=== PATIENT | male | born 1975 | race Caucasian/White ===

== ENCOUNTER 2021-06-28 10:37 | Outpatient (REF) | payer OTHER, SELFPAY ==
[2021-06-28 10:44] LABS: MANUAL DIFF FLAG NO
[2021-06-28 11:39] LABS: Basophils Absolute Auto 0.1 X10*3/uL (0.0-0.2); Basophils Percent Auto 0.7 % (0-2); Eosinophils Absolute Auto 0.2 X10*3/uL (0.0-0.4); Eosinophils Percent Auto 2.2 % (0-4); Hematocrit 47.8 % (42.0-52.0); Hemoglobin 16.2 g/dl (14.0-18.0); Imm Gran Abs Auto 0.02 X10*3/uL (0.00-0.03); Imm Gran Pct Auto 0.3 % (0.0-0.4); Lymphocytes Absolute Auto 3.2 X10*3/uL (1.2-4.9); Lymphocytes Percent Auto 43.9 % (20-40); Mean Corpuscular HGB Conc 33.9 g/dl (31.0-36.0); Mean Corpuscular Hemoglobin 31.3 pg (27.0-33.0); Mean Corpuscular Volume 92.3 fL (80.0-98.0); Monocytes Absolute Auto 0.7 X10*3/uL (0.1-1.2); Monocytes Percent Auto 9.5 % (2-11); Neutrophils Absolute Auto 3.1 x10*3/uL (2.0-8.3); Neutrophils Percent Auto 43.4 % (45-73); Platelet Count 231 X10*3/uL (160-400); Red Blood Count 5.18 X10*6/uL (4.60-5.80); Red Cell Distribution Width 12.3 % (11.0-16.0); White Blood Count 7.2 X10*3/uL (4.8-10.8)
[2021-06-28 11:47] LABS: Appearance Urine CLEAR; Color Urine YELLOW; Glucose Urine UA NEG (NEG); Leukocyte Esterase Urine NEG (NEG); Nitrite Urine NEG (NEG); Urine Blood NEG (NEG); Urine Ketones NEG (NEG); Urine Protein NEG (NEG-TRACE)
[2021-06-28 12:51] LABS: Alanine Aminotransferase 25 U/L (0-40); Albumin Level 4.2 g/dL (3.5-5.0); Alkaline Phosphatase 60 U/L (39-117); Anion Gap 14 (12-20); Aspartate Amino Transferase 26 U/L (5-37); Bilirubin Total 0.7 mg/dL (0.0-1.0); Blood Urea Nitrogen 11 mg/dL (9-16); Calcium 9.2 mg/dL (8.4-10.2); Carbon Dioxide 25 mmol/L (22-29); Chloride 104 mmol/L (96-108); Cholesterol 238 mg/dL; Estimated Glomerular Filt Rate > 60; Glucose Fasting 93 mg/dL (60-99); HDL Cholesterol 48 mg/dL; LDL Cholesterol Calculated 166 mg/dl; Potassium 4.3 mmol/L (3.3-5.1); Sodium 139 mmol/L (135-145); Total Protein 7.2 g/dL (6.5-8.0); Triglycerides 124 mg/dL
[2021-06-28 13:13] LABS: PSA,Total (Free>4and<10) 0.18 ng/mL (0.00-4.00)
== END 2021-06-28 10:38 | disposition home or self-care (01) ==
LOC: HO.LNP 10:37
PROVIDERS: Visit Provider Internal Medicine
DX: Z00.00 Encounter for general adult medical examination without abnormal findings (principal); R73.01 Impaired fasting glucose; I10 Essential (primary) hypertension
CPT/HCPCS: 80053; 80061; 81003; 84153; 85025

== ENCOUNTER 2021-10-10 10:36 | Outpatient (REF) | payer OTHER, SELFPAY ==
[2021-10-10 10:39] LABS: MANUAL DIFF FLAG NO
[2021-10-10 10:56] LABS: Basophils Absolute Auto 0.1 X10*3/uL (0.0-0.2); Basophils Percent Auto 0.8 % (0-2); Eosinophils Absolute Auto 0.2 X10*3/uL (0.0-0.4); Eosinophils Percent Auto 1.9 % (0-4); Hematocrit 46.1 % (42.0-52.0); Hemoglobin 15.6 g/dl (14.0-18.0); Imm Gran Abs Auto 0.05 X10*3/uL (0.00-0.03); Imm Gran Pct Auto 0.6 % (0.0-0.4); Lymphocytes Absolute Auto 2.6 X10*3/uL (1.2-4.9); Lymphocytes Percent Auto 33.1 % (20-40); Mean Corpuscular HGB Conc 33.8 g/dl (31.0-36.0); Mean Corpuscular Hemoglobin 31.1 pg (27.0-33.0); Monocytes Absolute Auto 0.7 X10*3/uL (0.1-1.2); Monocytes Percent Auto 9.6 % (2-11); Neutrophils Absolute Auto 4.2 x10*3/uL (2.0-8.3); Platelet Count 236 X10*3/uL (160-400); Red Blood Count 5.01 X10*6/uL (4.60-5.80); Red Cell Distribution Width 12.9 % (11.0-16.0); White Blood Count 7.7 X10*3/uL (4.8-10.8)
== END 2021-10-10 10:37 | disposition home or self-care (01) ==
LOC: HO.LNP 10:36
PROVIDERS: Visit Provider Internal Medicine
DX: D72.820 Lymphocytosis (symptomatic) (principal)
CPT/HCPCS: 85025

== ENCOUNTER 2021-12-16 07:50 | Day surgery (SDC) | payer OTHER, SELFPAY ==
[2021-12-09 14:51] VITALS: BMI 35.9
--- NOTE | 2021-12-15 08:21 | HO.ANESPROP2 ---
Documented by User: Pretty Barnett NP 12/15/21 08:22 HPI - Anesthesia Eval Consult details Narrative: 46yo M for Colonoscopy [facility] Past Medical History Medical History No pertinent past medical history Surgical History Surgical History Hx of vasectomy Social History Social History Patient Tobacco Use Status: Never used Tobacco Advance Directives: No Advance Directives Information Provided: Yes Advance Directives on File: No Meds Allergies Allergy/AdvReac Type Severity Reaction Status Date / Time No Known Allergies Allergy Verified 12/09/21 14:44 Home Medications Medication Instructions Recorded Confirmed Last Taken Type No Known Home Meds 12/09/21 12/09/21 Unknown History Exam Exam Date and Time: December 15, 2021 0821 Height,Weight and Vital Signs: Height 5 ft 8 in Weight 107.048 kg Pertinent Lab Results Pertinent Lab Results: Laboratory Tests 06/28/21 10/10/21 07:38 08:00 WBC 7.7 Hgb 15.6 Hct 46.1 Plt Count 236 Sodium 139 Potassium 4.3 Chloride 104 Carbon Dioxide 25 BUN 11 Creatinine 1.01 Assessment and Plan Assessment Anesthesia Assessment: Chart Reviewed Documented by User: Ayleen Rojas MD 12/16/21 09:47 [facility] Active Problems Active Problems: Increased BMI Snores but never tested for PAM Past Medical History Medical History No pertinent past medical history Family History Family history of problems with anesthesia: No Surgical History Surgical History Hx of vasectomy History of Problems with Anesthesia: No Social History Social History Patient Tobacco Use Status: Never used Tobacco Advance Directives: No Advance Directives Information Provided: Yes Advance Directives on File: No Meds Allergies Allergy/AdvReac Type Severity Reaction Status Date / Time No Known Allergies Allergy Verified 12/09/21 14:44 Home Medications Medication Instructions Recorded Confirmed Last Taken Type No Known Home Meds 12/09/21 12/09/21 Unknown History Exam Height,Weight and Vital Signs: Height 5 ft 8 in Weight 107.048 kg Vital Signs Temp Pulse Resp BP Pulse Ox 12/16/21 07:54 97.7 F 70 18 140/79 H 97 Airway Mallampati Class: II TM Dist: >3cm Neck ROM: Full Loose/Missing/Broken Teeth: No Heart: RRR Lungs: CTAB Assessment and Plan Assessment Anesthesia Assessment: Anesthesia Plan Discussed Final Anesthetic Review Family History of Problems with Anesthesia: No History of Problems with Anesthesia: No NPO: Yes ASA Class: II Final Preanesthetic Review: No Changes in Pt Med Stat, Meds/Allgs Chart Reviewed, Consent Obtained/Reviewed and Anes Risks/Benef Reviewed Patient Risk: Low Procedure Risk: Low Assessment/Block/Sedation in SS: Assess/Block/Sedation-SS Anesthetic Plan Anesthetic Plan: MAC: Disposition: Standard PACU
[2021-12-16 07:54] VITALS: BP 140/79; PULSE 70; RESP 18; TEMP 36.5; O2SAT 97
[2021-12-16] MEDS: Lactated Ringers 1,000 ML 100 ML IVCONT (08:14)
[2021-12-16 10:26] VITALS: BP 184/88; PULSE 69; RESP 16; TEMP 36.2; O2SAT 94
--- NOTE | 2021-12-16 10:29 | P.BOP_ITS ---
Brief Operative Note Date of Service: 12/16/21 Pre-op diagnosis: Screening Post-op diagnosis: other (Internal hemorrhoids) Procedure: Colonoscopy to the cecum and TI Surgeon: Brock Webber Anesthesia: MAC Was an Wildlife Refuge Manager used for this Procedure?: No Estimated blood loss (mL): 0 Pathology: none sent Condition: stable Disposition: PACU
[2021-12-16 10:41] VITALS: BP 126/82; PULSE 73; RESP 18; O2SAT 99
[2021-12-16 10:56] VITALS: BP 144/89; PULSE 67; RESP 16; TEMP 36.6; O2SAT 95
--- NOTE | 2021-12-16 21:59 | OP_ITS ---
SURGEON: Brock Webber MD INDICATIONS: The patient presents for evaluation of colorectal cancer screening. Full consent was obtained from him for this, including risks of bleeding and perforation. PREOPERATIVE DIAGNOSIS: Colorectal cancer screening. POSTOPERATIVE DIAGNOSIS: PROCEDURE PERFORMED: Colonoscopy to the cecum and terminal ileum. ESTIMATED BLOOD LOSS: COMPLICATIONS: ANESTHESIA: Monitored anesthesia care. ASSISTANTS: SPECIMENS: POSTOPERATIVE DIAGNOSES: Colorectal cancer screening, internal hemorrhoids. DESCRIPTION OF PROCEDURE: The patient was placed in the left lateral decubitus position. The digital rectal exam revealed no abnormalities. The Olympus video pediatric colonoscope was entered into the rectum and advanced easily to the cecum. Once in the cecum, I did identify normal-appearing cecal pouch with appendiceal orifice and a normal-appearing ileocecal valve. The terminal ileum was cannulated and appeared normal. The scope was withdrawn back in the colon. The entire cecum and ileocecal valve were well visualized and appeared normal. The scope was slowly withdrawn assessing all mucosal surfaces carefully. Preparation was excellent. I did not visualize any sign of polyps, colitis, nor angiodysplasia. In the rectum, scope was retroflexed visualizing small internal hemorrhoids, but no other pathology. The rectal mucosa appeared normal. The scope was straightened and withdrawn from the patient. He tolerated the procedure well and was returned to recovery area in stable condition. IMPRESSION: Small internal hemorrhoids. Otherwise normal colonoscopy. PLAN: I would recommend a repeat colonoscopy in 10 years for further screening. He will otherwise see me on a p.r.n. basis. MD MAURICIO Samayoa/RAQUEL / [phone]
== END 2021-12-16 11:20 | disposition home or self-care (01) ==
PROVIDERS: PCP Internal Medicine; Visit Provider Internal Medicine
PROC: 0DJD8ZZ Inspection of Lower Intestinal Tract, Via Natural or Artificial Opening Endoscopic (ICD-10-PCS; CPT 45378; principal; 2021-12-16 09:10)
DX: Z12.11 Encounter for screening for malignant neoplasm of colon (principal); K64.8 Other hemorrhoids
CPT/HCPCS: 45378

== ENCOUNTER 2022-07-10 11:33 | Outpatient (REF) | payer OTHER, SELFPAY ==
[2022-07-10 11:37] LABS: MANUAL DIFF FLAG NO
[2022-07-10 12:05] LABS: Appearance Urine Clear; Color Urine Yellow; Glucose Urine UA Negative (Negative); Leukocyte Esterase Urine Negative (Negative); Nitrite Urine Negative (Negative); PH 5.5 (5.0-9.0); Urine Blood Negative (Negative); Urine Ketones Negative (Negative); Urine Protein Negative (Neg-Trace)
[2022-07-10 12:11] LABS: Bacteria Urine None Seen (None Seen); Basophils Absolute Auto 0.1 X10*3/uL (0.0-0.2); Basophils Percent Auto 1.2 % (0-2); Eosinophils Absolute Auto 0.2 X10*3/uL (0.0-0.4); Eosinophils Percent Auto 2.3 % (0-4); Hemoglobin 15.9 g/dl (14.0-18.0); Hyaline Casts Urine 0-2 /LPF (0-2); Imm Gran Abs Auto 0.05 X10*3/uL (0.00-0.03); Imm Gran Pct Auto 0.6 % (0.0-0.4); Lymphocytes Absolute Auto 3.2 X10*3/uL (1.2-4.9); Lymphocytes Percent Auto 35.1 % (20-40); Mean Corpuscular HGB Conc 33.8 g/dl (31.0-36.0); Mean Corpuscular Hemoglobin 31.2 pg (27.0-33.0); Mean Corpuscular Volume 92.3 fL (80.0-98.0); Monocytes Absolute Auto 0.7 X10*3/uL (0.1-1.2); Neutrophils Absolute Auto 4.8 x10*3/uL (2.0-8.3); Neutrophils Percent Auto 52.8 % (45-73); Platelet Count 230 X10*3/uL (160-400); RBC Urine 0-2 /HPF (0-2); Red Blood Count 5.09 X10*6/uL (4.60-5.80); Red Cell Distribution Width 12.4 % (11.0-16.0); Squamous Epithelial Cell Urine 0-2 /HPF (0-2); WBC Urine 0-5 /HPF (0-5); White Blood Count 9.1 X10*3/uL (4.8-10.8)
[2022-07-10 13:06] LABS: Blood Urea Nitrogen 14 mg/dL (9-16); Estimated Glomerular Filt Rate > 60
[2022-07-10 13:14] LABS: Alanine Aminotransferase 24 U/L (0-40); Albumin Level 3.9 g/dL (3.5-5.0); Alkaline Phosphatase 70 U/L (39-117); Anion Gap 10 (12-20); Aspartate Amino Transferase 23 U/L (5-37); Bilirubin Total 0.4 mg/dL (0.0-1.0); Carbon Dioxide 26 mmol/L (22-29); Chloride 106 mmol/L (96-108); Cholesterol 229 mg/dL; Glucose Fasting 96 mg/dL (60-99); HDL Cholesterol 47 mg/dL; LDL Cholesterol Calculated 149 mg/dl; PSA,Total (Free>4and<10) 0.26 ng/mL (0.00-4.00); Potassium 4.3 mmol/L (3.3-5.1); Sodium 138 mmol/L (135-145); Total Protein 6.8 g/dL (6.5-8.0); Triglycerides 166 mg/dL
== END 2022-07-10 11:34 | disposition home or self-care (01) ==
LOC: HO.LNP 11:33
PROVIDERS: Visit Provider Internal Medicine
DX: Z00.00 Encounter for general adult medical examination without abnormal findings (principal); I10 Essential (primary) hypertension; D72.820 Lymphocytosis (symptomatic); Z12.5 Encounter for screening for malignant neoplasm of prostate
CPT/HCPCS: 80053; 80061; 81001; 84153; 85025

== ENCOUNTER → 2022-08-25 14:40 | Outpatient (BNVA) | payer OTHER, SELFPAY | PROVIDERS: PCP Internal Medicine; Referring Provider Internal Medicine; Visit Provider Surgery | DX: Z13.89 Encounter for screening for other disorder (principal) ==

== ENCOUNTER 2022-09-08 07:59 | Outpatient (REF) | payer OTHER, SELFPAY ==
--- NOTE | ~2022-09-08 | CT_ITS ---
EXAMINATION: CT ABDOMEN AND PELVIS WITHOUT CONTRAST CLINICAL INFORMATION: Umbilical hernia without obstruction or gangrene. COMPARISON: None TECHNIQUE: Multidetector volumetric imaging was performed from the superior aspect of the liver through the pubic symphysis. Sagittal and coronal reformatted images were obtained on the technologist's workstation. This CT examination was performed using dose optimization techniques as appropriate, variously including the following: *Automated exposure control *Adjustment of mA and/or kV according to patient size (this includes techniques or standardized protocols for targeted exams where dose is matched to indication/reason for exam; i.e. extremities or head) *Use of iterative reconstruction technique DLP: 726 mGy-cm FINDINGS: LUNG BASES: The visualized lung bases are unremarkable. LIVER, GALLBLADDER, AND BILIARY TREE: The liver is normal in size, shape, and attenuation. There is a 1.1 cm lesion left hepatic lobe. No additional lesions seen. There is no intrahepatic ductal dilatation. The gallbladder is unremarkable with no evidence of radiopaque gallstones, gallbladder wall thickening, or obvious pericholecystic inflammatory changes. PANCREAS: Unremarkable. SPLEEN: Unremarkable. ADRENAL GLANDS: Unremarkable. KIDNEYS AND URETERS: The kidneys are normal in size, shape, and attenuation. No hydronephrosis, hydroureter, or calculi seen. No perinephric stranding. BLADDER: Unremarkable. GASTROINTESTINAL TRACT: There is scattered stool and gas seen throughout the colon without distention. The small bowel loops are normal caliber. Appendix is normal. No inflammatory process seen in the abdomen. ABDOMINAL WALL: There is a small umbilical/supraumbilical hernia with neck measuring 2.3 cm wide on axial image 53/3. It mainly consists of intraperitoneal fat and focal fluid collection. LYMPH NODES: Normal. VASCULAR: Unremarkable. PELVIC VISCERA: Unremarkable. OSSEOUS STRUCTURES: No aggressive lytic or sclerotic process seen. CT/CT abdomen pelvis wo IV con IMPRESSION: 1. Small umbilical/supraumbilical hernia containing intraperitoneal fat and focal fluid collection. 2. Mild constipation. Fleischner guidelines were followed.
== END 2022-09-08 08:00 | disposition home or self-care (01) ==
LOC: HO.CT 07:59
PROVIDERS: PCP Internal Medicine; Visit Provider Surgery
DX: K42.9 Umbilical hernia without obstruction or gangrene (principal); M62.08 Separation of muscle (nontraumatic), other site
CPT/HCPCS: 74176

== ENCOUNTER → 2022-09-19 15:46 | Outpatient (BNVA) | payer OTHER, SELFPAY | PROVIDERS: PCP Internal Medicine; Visit Provider Surgery | DX: Z13.89 Encounter for screening for other disorder (principal) ==

== ENCOUNTER 2022-09-21 07:26 | Day surgery (SDC) | payer OTHER, SELFPAY ==
[2022-09-21] VITALS (8 sets, daily range): BP systolic 128–155; BP diastolic 71–91; PULSE 71–90; RESP 14–18; TEMP 36.3–36.4; O2SAT 95–97; BMI 34.9
[2022-09-21] MEDS: Lactated Ringers 1,000 ML 100 ML IVCONT (08:16)
--- NOTE | 2022-09-21 08:47 | HO.ANESPROP2 ---
HPI - Anesthesia Eval Consult details Narrative: Left IHR with mesh PMFSH Active Problems Active Problems: All Active Problems (Updated 08/25/22 @ 15:18 by Jaya Segundo MD) Obesity (BMI 30-39.9) (Acute) Diastasis recti (Acute) Umbilical hernia (Acute) Past Medical History Medical History No pertinent past medical history Family History Family history of problems with anesthesia: No Surgical History Surgical History Hx of vasectomy History of Problems with Anesthesia: No Social History Social History Patient Tobacco Use Status: Never used Tobacco Second Hand Smoke Exposure: No Use of substances other than those prescribed or required for medical reasons: No Are you DNR?: No Advance Directives: No Advance Directives Information Provided: Yes Advance Directives on File: No Meds Allergies Allergy/AdvReac Type Severity Reaction Status Date / Time No Known Allergies Allergy Verified 09/19/22 15:50 Active Medications: Current Medications Lactated Ringer's (Lr) 1,000 mls @ 100 mls/hr IVCONT .Q10H VALERIE Last Admin: 09/21/22 08:16 Dose: 100 mls/hr Exam Exam Date and Time: September 21, 2022 0847 Height,Weight and Vital Signs: Height 5 ft 8 in Weight 104.326 kg Last Vital Signs Temp 97.4 F 09/21/22 07:54 Pulse 71 09/21/22 07:54 Resp 16 09/21/22 07:54 BP 143/91 H 09/21/22 07:54 Pulse Ox 97 09/21/22 07:54 O2 Del Method 09/21/22 07:54 Airway Mallampati Class: II TM Dist: >3cm Neck ROM: Full Heart: rrr Lungs: cta Assessment and Plan Assessment Anesthesia Assessment: Anesthesia Plan Discussed and Chart Reviewed Final Anesthetic Review Family History of Problems with Anesthesia: No History of Problems with Anesthesia: No NPO: Yes ASA Class: II Final Preanesthetic Review: No Changes in Pt Med Stat, Meds/Allgs Chart Reviewed, Consent Obtained/Reviewed and Anes Risks/Benef Reviewed Patient Risk: Low Procedure Risk: Low Anesthetic Plan Anesthetic Plan: GA Disposition: Standard PACU
--- NOTE | 2022-09-21 09:06 | P.OP_ITS ---
Operative Note Operative Note Date of Service: 09/21/22 Narrative: Preop diagnosis: [Umbilical hernia, 2.3cm] Postop diagnosis: [Same, viable properitoneal fat contained] Procedure: [Laparoscopic repair with 4 in by 6 in echo mesh] Surgeon: Jaya Segundo MD Assist: [] Anesthesia: [GET, local ropivicaine, 0.5%] Estimated blood loss: [3cc] Specimen: [None] Intraoperative findings: [Viable properitoneal fat was identified and reduced. Primary closure with is 0 V lock and IPOM performed] Indications: [The patient is a 47 year old gentleman with a history of obesity and a progressively symptomatic umbilical hernia. The options regarding repair in and observation were discussed at length. The importance of maintaining a stable weight and avoiding weight gain to optimize any hernia repair was reviewed. Patient had progression of his symptoms and wanted to have a lapa roscopic repair with intra-abdominal mesh. The inherent risks of bleeding, infection, hernia recurrence, recurrence rate increase with weight gain and not following postoperative activity restrictions, mesh complications that could require another operation or mesh removal were also discussed and apparently understood. The patient seemed understand his options, declined a 2nd opinion and wanted to proceed.] Procedure: [The patient was identified by myself in the preoperative holding area and again in or room 3. 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 He was induced in general endotracheal anesthesia administered with excellent effect. His abdominal hair had previously been clipped and he was widely prepped and draped in the usual manner using ChloraPrep. Appropriate time-out was performed and preemptive local used at all trocar insertion sites. I began in the left upper quadrant after raising a skin wheal, made a skin incision and placed a Veress needle without incident. An appropriate drop test was performed and a pneumoperitoneum of 15 mmHg obtained using carbon dioxide. Next, a 5 mm anterior axillary line port was placed at the level of the umbilicus on the patient's left and the abdomen entered with a 5 mm, 30 degree laparoscopic open Optiview trocar technique without incident. The Veress needle was examined and there was no evidence of injury from it so was removed. A 12 mm port was placed in the left upper quadrant and an additional 5 mm placed in the right anterior axillary line. Laparoscopic exploration of the abdomen showed no other significant pathology. The 5 mm [place] tipped LigaSure was used to circumferentially dissect and reduce the hernia at the supraumbilical location. Two small hernias were noted to be torsed in a [id number] and the fatty tissue was dissected to allow a 4 x 6 inch echo mesh to be placed directly on the posterior sheath/peritoneal space. The fat was placed in an Endo-Catch bag and removed and discarded. Next, primary closure of the umbilical defect that measured 2.[address] was performed using a running 0 V lock suture in intra peritoneal fashion. Next, the echo mesh was deployed and secured with absorbable tacks with the umbilical hernia defect at the center of the mesh. After deflating the abdomen and inspected for hemostasis, the 12 mm trocar was removed and the fascia closed using a an 0 Polysorb on a suture Passer. The abdomen was then deflated and the suture tied. Skin was closed with 4-0 Monocryl subcuticular sutures. The area was then washed and dried, Mastisol and Steri-Strips applied followed by Band-Aids. A cotton ball and Tegaderm were placed to minimize seroma formation at the umbilicus. All sponge instrument counts were correct x2 At the patient's request, I contacted his Victorina at [phone] and apprised of the operation, pain management and activity restrictions. Her questions seemed to be satisfactorily answered.]
--- NOTE | 2022-09-21 09:06 | MHC.SHP ---
Pre-Procedural Eval Section A Date of Service: 09/21/22 The patient is an INPATIENT: No The History & Physical has been completed within 30 days and I have reviewed it.: Yes Section B Chief Complaint: Umbilical hernia without obstruction or gangrene Allergies: Allergies Allergy/AdvReac Type Severity Reaction Status Date / Time No Known Allergies Allergy Verified 09/19/22 15:50 Plan I have reviewed the history and physical and performed a pertinent physical examination on my patient. No changes have occurred unless specified. Time Spent With Patient Time: Total time managing care of this patient today ____ minutes.
[2022-09-21] MEDS: oxyCODONE HCl Immed Release 5 MG TABLET PO (11:40)
== END 2022-09-21 12:51 | disposition home or self-care (01) ==
PROVIDERS: PCP Internal Medicine; Visit Provider Surgery
PROC: 0WQF4ZZ Repair Abdominal Wall, Percutaneous Endoscopic Approach (ICD-10-PCS; CPT 49591; principal; 2022-09-21 09:10)
DX: K42.9 Umbilical hernia without obstruction or gangrene (principal); M62.08 Separation of muscle (nontraumatic), other site; E66.9 Obesity, unspecified; Z68.36 Body mass index [BMI] 36.0-36.9, adult; Z98.52 Vasectomy status
CPT/HCPCS: 49591; C1781; J0690; J1885; J2250; J2405; J3010

== ENCOUNTER → 2022-10-03 13:01 | Outpatient (BNVA) | payer OTHER, SELFPAY | PROVIDERS: PCP Internal Medicine; Visit Provider Surgery | DX: Z13.89 Encounter for screening for other disorder (principal) ==

== ENCOUNTER → 2022-10-10 10:29 | Outpatient (BNVA) | payer OTHER, SELFPAY | PROVIDERS: PCP Internal Medicine; Visit Provider Surgery | DX: Z13.89 Encounter for screening for other disorder (principal) ==

== ENCOUNTER 2023-07-10 11:04 | Outpatient (REF) | payer OTHER, SELFPAY ==
[2023-07-10 11:25] LABS: MANUAL DIFF FLAG NO
[2023-07-10 11:53] LABS: Basophils Absolute Auto 0.1 X10*3/uL (0.0-0.2); Basophils Percent Auto 1.1 % (0-2); Eosinophils Absolute Auto 0.1 X10*3/uL (0.0-0.4); Eosinophils Percent Auto 1.7 % (0-4); Hematocrit 46.2 % (42.0-52.0); Hemoglobin 15.7 g/dl (14.0-18.0); Imm Gran Abs Auto 0.03 X10*3/uL (0.00-0.03); Imm Gran Pct Auto 0.4 % (0.0-0.4); Lymphocytes Absolute Auto 2.8 X10*3/uL (1.2-4.9); Lymphocytes Percent Auto 37.3 % (20-40); Mean Corpuscular Hemoglobin 32.1 pg (27.0-33.0); Mean Corpuscular Volume 94.5 fL (80.0-98.0); Mean Platelet Volume 9.9 fL (9.4-12.4); Monocytes Absolute Auto 0.7 X10*3/uL (0.1-1.2); Monocytes Percent Auto 9.2 % (2-11); Neutrophils Absolute Auto 3.8 x10*3/uL (2.0-8.3); Neutrophils Percent Auto 50.3 % (45-73); Platelet Count 240 X10*3/uL (160-400); Red Blood Count 4.89 X10*6/uL (4.60-5.80); Red Cell Distribution Width 12.6 % (11.0-16.0); White Blood Count 7.6 X10*3/uL (4.8-10.8)
[2023-07-10 11:59] LABS: Appearance Urine Clear; Color Urine Yellow; Glucose Urine UA Negative (Negative); Leukocyte Esterase Urine Negative (Negative); Nitrite Urine Negative (Negative); PH 6.5 (5.0-9.0); Specific Gravity - Urine 1.015 (1.005-1.025); Urine Blood Negative (Negative); Urine Ketones Negative (Negative); Urine Protein Negative (Neg-Trace)
[2023-07-10 12:03] LABS: Bacteria Urine None Seen (None Seen); Hyaline Casts Urine 0-2 /LPF (0-2); RBC Urine 0-2 /HPF (0-2); Squamous Epithelial Cell Urine 0-2 /HPF (0-2); WBC Urine 0-5 /HPF (0-5)
[2023-07-10 12:19] LABS: Alanine Aminotransferase 23 U/L (0-40); Albumin Level 3.9 g/dL (3.5-5.0); Alkaline Phosphatase 68 U/L (39-117); Anion Gap 10 (12-20); Aspartate Amino Transferase 22 U/L (5-37); Bilirubin Total 0.5 mg/dL (0.0-1.0); Blood Urea Nitrogen 13 mg/dL (9-16); Calcium 9.4 mg/dL (8.4-10.2); Carbon Dioxide 29 mmol/L (22-29); Chloride 106 mmol/L (96-108); Cholesterol 210 mg/dL (<200); Estimated Glomerular Filt Rate > 60; Glucose Fasting 95 mg/dL (60-99); HDL Cholesterol 45 mg/dL (>40); LDL Cholesterol Calculated 120 mg/dL (<100); Potassium 4.3 mmol/L (3.3-5.1); Sodium 141 mmol/L (135-145); Total Protein 7.2 g/dL (6.5-8.0); Triglycerides 226 mg/dL (<150)
[2023-07-10 12:28] LABS: Prostate Specific Antigen 0.21 ng/mL (<0.05-4.0)
== END 2023-07-10 11:05 | disposition home or self-care (01) ==
LOC: HO.LNP 11:04
PROVIDERS: Visit Provider Internal Medicine
DX: Z00.00 Encounter for general adult medical examination without abnormal findings (principal); Z12.5 Encounter for screening for malignant neoplasm of prostate; I10 Essential (primary) hypertension; D72.820 Lymphocytosis (symptomatic)
CPT/HCPCS: 80053; 80061; 81001; 84153; 85025

== ENCOUNTER 2024-07-21 11:04 | Outpatient (REF) | payer OTHER, SELFPAY ==
[2024-07-21 11:07] LABS: MANUAL DIFF FLAG NO
[2024-07-21 11:31] LABS: Appearance Urine Clear; Basophils Absolute Auto 0.1 X10*3/uL (0.0-0.2); Basophils Percent Auto 0.7 % (0-2); Color Urine Yellow; Eosinophils Absolute Auto 0.2 X10*3/uL (0.0-0.4); Eosinophils Percent Auto 3.1 % (0-4); Glucose Urine UA Negative (Negative); Hematocrit 46.1 % (42.0-52.0); Imm Gran Abs Auto 0.02 X10*3/uL (0.00-0.03); Imm Gran Pct Auto 0.3 % (0.0-0.4); Leukocyte Esterase Urine Negative (Negative); Lymphocytes Absolute Auto 2.4 X10*3/uL (1.2-4.9); Lymphocytes Percent Auto 34.8 % (20-40); Mean Corpuscular HGB Conc 34.7 g/dl (31.0-36.0); Mean Corpuscular Hemoglobin 31.9 pg (27.0-33.0); Monocytes Absolute Auto 0.7 X10*3/uL (0.1-1.2); Monocytes Percent Auto 9.5 % (2-11); Neutrophils Absolute Auto 3.5 x10*3/uL (2.0-8.3); Neutrophils Percent Auto 51.6 % (45-73); Nitrite Urine Negative (Negative); PH 6.5 (5.0-9.0); Platelet Count 228 X10*3/uL (160-400); Red Blood Count 5.01 X10*6/uL (4.60-5.80); Red Cell Distribution Width 12.2 % (11.0-16.0); Specific Gravity - Urine 1.015 (1.005-1.025); Urine Blood Negative (Negative); Urine Ketones Negative (Negative); Urine Protein Negative (Neg-Trace); White Blood Count 6.9 X10*3/uL (4.8-10.8)
[2024-07-21 11:51] LABS: Alanine Aminotransferase 29 U/L (0-40); Albumin Level 4.1 g/dL (3.5-5.0); Alkaline Phosphatase 65 U/L (39-117); Anion Gap 10 (12-20); Aspartate Amino Transferase 32 U/L (5-37); Bilirubin Total 0.6 mg/dL (0.0-1.0); Blood Urea Nitrogen 11 mg/dL (9-16); Calcium 9.3 mg/dL (8.4-10.2); Carbon Dioxide 27 mmol/L (22-29); Chloride 104 mmol/L (96-108); Cholesterol 219 mg/dL (<200); Estimated Glomerular Filt Rate > 60; Glucose Fasting 91 mg/dL (60-99); HDL Cholesterol 45 mg/dL (>40); LDL Cholesterol Calculated 148 mg/dL (<100); Potassium 4.2 mmol/L (3.3-5.1); Sodium 137 mmol/L (135-145); Total Protein 7.2 g/dL (6.5-8.0); Triglycerides 133 mg/dL (<150)
[2024-07-21 12:03] LABS: PSA,Total (Free>4and<10) 0.21 ng/mL (0.00-4.00)
== END 2024-07-21 11:05 | disposition home or self-care (01) ==
LOC: HO.LNP 11:04
PROVIDERS: Visit Provider Internal Medicine
DX: Z00.00 Encounter for general adult medical examination without abnormal findings (principal); Z12.5 Encounter for screening for malignant neoplasm of prostate; I10 Essential (primary) hypertension; D72.820 Lymphocytosis (symptomatic)
CPT/HCPCS: 80053; 80061; 81003; 84153; 85025

== ENCOUNTER 2024-11-18 20:49 | Emergency (ER) | payer OTHER, SELFPAY ==
--- NOTE | ~2024-11-18 | CT_ITS ---
CLINICAL HISTORY: Lower abd pain and tenderness, WBC 13.7 CT ABDOMEN AND PELVIS WITH CONTRAST COMPARISON: 09/08/2022. FINDINGS: There are multiple fluid-filled and mildly dilated loops of mid small bowel, for example measuring up to 3 cm in caliber on axial image 535 of series 4. Distal to this, there is apparent wall thickening involving several loops of small bowel, for example seen on coronal images 18-28. These loops of small bowel are underdistended which makes accurate assessment difficult. These loops of small bowel demonstrate wall thickening which might be due at least in part to underdistention, however enteritis is questioned as there is noted to be a small amount of adjacent mesenteric fluid, for example seen on coronal image 17. A small amount of fluid is also noted within the upper abdomen. There is also trace pelvic fluid. There is no rim enhancing abscess or free air. Minimal atelectatic changes are noted within the lower lungs. A subcentimeter low-attenuation lesion in the left hepatic lobe is too small to characterize. Fatty liver is suspected. Gallbladder is unremarkable. No visible stone. Stomach is mildly distended with enteric contents and some gas. Pancreas is unremarkable. No CT evidence of acute pancreatitis. Spleen and adrenal glands are unremarkable. Both kidneys are unremarkable. No hydronephrosis or obstructing stone. Urinary bladder is unremarkable. Abdominal aorta is normal in caliber, without evidence of an aneurysm or dissection. No pericolonic inflammation. Appendix is visualized, and there is no evidence of acute appendicitis. Fluid and nonspecific air-fluid levels are noted within nonobstructed portions of ascending and transverse colon. Fat containing umbilical hernia is noted. No evidence of a bowel containing hernia. The bone windows demonstrate no acute abnormalities. Degenerative changes are noted in the visualized spine. There is minimal grade 1 anterolisthesis of L4 on L5. IMPRESSION: 1. A small-bowel obstruction is present, with multiple fluid-filled and mildly dilated loops of mid small bowel measuring up to 3 cm in caliber. Distal to this is apparent wall thickening involving several loops of underdistended small bowel. Although this wall thickening might be due to underdistention, enteritis is questioned as there is noted to be a small amount of adjacent mesenteric fluid. A small amount of abdominal/pelvic fluid is also noted. There is no rim enhancing abscess or free air. Surgical consultation is advised. 2. Additional findings are detailed above. This document has been electronically signed by: Darryl Pack M.D. on 11/19/2024 01:25:15
[2024-11-18 20:52] VITALS: BP 158/105; PULSE 70; RESP 16; TEMP 36.9; O2SAT 98; BMI 36.3
[2024-11-18 21:12] LABS: MANUAL DIFF FLAG NO
[2024-11-18 21:15] LABS: Basophils Absolute Auto 0.1 X10*3/uL (0.0-0.2); Basophils Percent Auto 0.7 % (0-2); Eosinophils Absolute Auto 0.2 X10*3/uL (0.0-0.4); Eosinophils Percent Auto 1.3 % (0-4); Hematocrit 46.3 % (42.0-52.0); Hemoglobin 16.6 g/dl (14.0-18.0); Imm Gran Abs Auto 0.06 X10*3/uL (0.00-0.03); Imm Gran Pct Auto 0.4 % (0.0-0.4); Lymphocytes Absolute Auto 3.1 X10*3/uL (1.2-4.9); Lymphocytes Percent Auto 22.9 % (20-40); Mean Corpuscular HGB Conc 35.9 g/dl (31.0-36.0); Mean Corpuscular Hemoglobin 31.9 pg (27.0-33.0); Neutrophils Absolute Auto 9.2 x10*3/uL (2.0-8.3); Neutrophils Percent Auto 67.7 % (45-73); Platelet Count 241 X10*3/uL (160-400); Red Cell Distribution Width 12.5 % (11.0-16.0); White Blood Count 13.7 X10*3/uL (4.8-10.8)
[2024-11-18 21:26] LABS: Alanine Aminotransferase 33 U/L (0-40); Albumin Level 4.4 g/dL (3.5-5.0); Alkaline Phosphatase 72 U/L (39-117); Anion Gap 12 (12-20); Aspartate Amino Transferase 29 U/L (5-37); Bilirubin Total 0.5 mg/dL (0.0-1.0); Blood Urea Nitrogen 16 mg/dL (9-16); Carbon Dioxide 28 mmol/L (22-29); Chloride 105 mmol/L (96-108); Creatinine Clr Calc Pharmacy 113.5; Estimated Glomerular Filt Rate > 60; Glucose Random 100 mg/dL (60-115); Lipase 31 U/L (8-78); Potassium 4.6 mmol/L (3.3-5.1); Sodium 140 mmol/L (135-145); Total Protein 7.6 g/dL (6.5-8.0)
[2024-11-18 21:37] LABS: Appearance Urine Clear; Color Urine Yellow; Glucose Urine UA Negative (Negative); Leukocyte Esterase Urine Negative (Negative); Nitrite Urine Negative (Negative); PH 6.5 (5.0-9.0); Urine Blood Negative (Negative); Urine Ketones Negative (Negative); Urine Protein Negative (Neg-Trace)
[2024-11-18 21:42] LABS: Bacteria Urine None Seen (None Seen); Hyaline Casts Urine 0-2 /LPF (0-2); RBC Urine 0-2 /HPF (0-2); Squamous Epithelial Cell Urine 0-2 /HPF (0-2); WBC Urine 0-5 /HPF (0-5)
--- OUTSIDE RECORDS SUMMARY | 2024-11-18 21:54 | XMS_ITS ---
Author Organization Dominic Bello MD Address [address] [place] [phone] Care Team Providers Care Sash Repairer Name Role Phone Dominic Bello Primary Care Provider [phone] Medications Medication SIG (Take, Route, Fr equency, Duration) Notes Start Date End Date Status LORazepam 0.5 MG one tablet Orally On ce a day for 10 days 10/25/2023 Active Encounters Encounter Location Date Provider Diagnosis Dominic Bello MD [address] [place] [address] [address] [place] [phone] 10/25/2023 Dominic Bello Plan Of Treatment Medication Medication Name Sig Start Date Stop Date Notes LORazepam 0.5 MG one tablet Orally Once a day for 10 days 10/25/2023 Next Appt Details Provider Name:Dominic pink, 07/24/2025 07:00:00 AM, [address] [place] [address], [address], [phone], Provider Name:Dominic pink, 07/30/2025 03:30:00 PM, [address] [place] [address], [address], [phone], Progress Notes * MELY VELAZQUEZ JrDOB:[birth year] (48 yo M)Acc No.[id number]:10/25/2023 Patient:?MELY VELAZQUEZ :1975???Age:48 Y???Sex:Male Address:[address] [place] [address] [place], [id number] * Refills? Continue LORazepam Tablet, 0.5 MG, Orally, 10, one tablet, Once a day, 10 days * true * Date:? Generated for Brianne lee/Isidro/eTchesmitting on:?11/18/2024 09:54 PM EDT
--- OUTSIDE RECORDS SUMMARY | 2024-11-18 21:54 | XMS_ITS | Patient Health Record ---
Author Organization Dominic Bello MD Address [address] [place], [place] [id number] Care Team Providers Care Structural Iron Worker Name Role Phone Dominic Bello Primary Care Provider Allergies No Known Allergies Results Component Value Reference Range Notes Complete Blood Count Auto Di ff Reviewed date:07/22/2024 12:42:13 PM Interpretation: Performing Lab:[facility], [address] [place] [id number] Notes/Report: White Blood Count 6.9 4.8-10.8 X10*3/uL Red Blood Count 5.01 4.60-5.80 X10*6/uL Hemoglobin 16.0 14.0-18.0 g/dl Hematocrit 46.1 42.0-52.0 % Mean Corpuscular Volume 92.0 80.0-98.0 fL Mean Corpuscular Hemoglobin 31.9 27.0-33.0 pg Mean Corpuscular HGB Conc 34.7 31.0-36.0 g/dl Red Cell Distribution Width 12.2 11.0-16.0 % Platelet Count 228 160-400 X10*3/uL Mean Platelet Volume 10.0 9.4-12.4 fL Neutrophils Percent Auto 51.6 45-73 % Imm Gran Pct Auto 0.3 0.0-0.4 % Lymphocytes Percent Auto 34.8 20-40 % Monocytes Percent Auto 9.5 2-11 % Eosinophils Percent Auto 3.1 0-4 % Basophils Percent Auto 0.7 0-2 % NRBC Pct Auto 0.0 0.0-0.2 /100WBC Neutrophils Absolute Auto 3.5 2.0-8.3 x10*3/u L Imm Gran Abs Auto 0.02 0.00-0.03 X10*3/uL Lymphocytes Absolute Auto 2.4 1.2-4.9 X10*3/u L Monocytes Absolute Auto 0.7 0.1-1.2 X10*3/uL Eosinophils Absolute Auto 0.2 0.0-0.4 X10*3/u L Basophils Absolute Auto 0.1 0.0-0.2 X10*3/uL NRBC Abs Auto 0.000 0.0-0.012 X10*3/uL Comprehensive [place]. Panel Fa st Reviewed date:07/22/2024 12:42:29 PM Interpretation: Performing Lab:[facility], [address] [place] [phone] Notes/Report: Sodium 137 135-145 mmol/L Potassium 4.2 3.3-5.1 mmol/L Chloride 104 96-108 mmol/L Carbon Dioxide 27 22-29 mmol/L Anion Gap 10 12-20 Blood Urea Nitrogen 11 9-16 mg/dL Creatinine 0.86 0.5-1.4 mg/dL Estimated Glomerular Filt Rate > 60 Chronic Kidney Disease: Estimated GFR < 60 mL/min/1.73m2 Severe Kidney Disease: Estimated GFR < 15 mL/min/1.73m2 Glucose Fasting 91 60-99 mg/dL Calcium 9.3 8.4-10.2 mg/dL Bilirubin Total 0.6 0.0-1.0 mg/dL Aspartate Amino Transferase 32 5-37 U/L Alanine Aminotransferase 29 0-40 U/L Total Protein 7.2 6.5-8.0 g/dL Albumin Level 4.1 3.5-5.0 g/dL Alkaline Phosphatase 65 39-117 U/L Lipid Panel Reviewed date:07/22/2024 11:08:13 AM Interpretation: Performing Lab:[facility], [address] [place] [phone] Notes/Report: Triglycerides 133 <150 mg/dL Desirable Triglyceride: less than 150 mg/dL Borderline High Triglyceride 150-199 mg/dL High Triglyceride: 200-499 mg/dL Very High Triglyceride: greater than or equal to 5OO mg/dL Cholesterol 219 <200 mg/dL Desirable Cholesterol: less than 200 mg/dL Borderline High Cholesterol: 200-239 mg/dL High Cholesterol: greater than 239 mg/dL LDL Cholesterol Calculated 148 <100 mg/dL Desirable LDL: less than 100 mg/dL Near Optimal/Above Optimal LDL: 110-129 mg/dL Borderline High LDL: 130-159 mg/dL High LDL: 160-189 mg/dL Very High LDL: greater than or equal to 190 mg/dL HDL Cholesterol 45 >40 mg/dL Desirable HDL: greater than 40 mg/dL Note: This HDL assay may give artificially low results in patients with liver disease. PSA,Total (Free>4and<10) Reviewed date:07/22/2024 11:08:22 AM Interpretation: Performing Lab:[facility], [address] [place] [phone] Notes/Report: PSA,Total (Free>4and<10) 0.21 0.00-4.00 ng/mL A Free PSA was not performed: The percentage of Free PSA can be used to enhance the differentiation of prostate cancer from benign prostatic disease in subjects whose PSA levels are between 4.0 and 10.0 ng/mL. For subjects whose PSA levels are below 4.0 or above 10.0 ng/mL, the risk of prostate cancer is determined on the basis of the PSA alone. Therefore the % Free PSA is recommended only for those subjects whose PSA levels are between 4.0 and 10.0 ng/mL. PSA methodology: Freire Alinity i Chemiluminescent Microparticle Immunoassay (CMIA) UA CC w/rflx Micro + Cult Reviewed date:07/22/2024 12:51:03 PM Interpretation: Performing Lab:[facility], [address] [place] [phone] Notes/Report: Urine, Clean Catch Color Urine Yellow Appearance Urine Clear PH 6.5 5.0-9.0 Glucose Urine UA Negative Negative mg/dL Urine Blood Negative Negative Specific [place] - Urine 1.015 1.005-1.025 Urine Protein Negative Neg-Trace mg/dL Urine Ketones Negative Negative mg/dL Nitrite Urine Negative Negative Leukocyte Esterase Urine Negative Negative Reason For Referral No Information Medications Medication SIG (Take, Route, Frequency, Duration) Notes Start Date End Date Status LORazepam 0.5 MG 1 tab Orally Twice a day as needed for 5 days 02/15/2023 Not-Taking Fluorouracil 1 % 1 application Externally Twice a day Not-Takin g Nizoral 2 % as directed External ly daily for 30 days Active Clobetasol Propionate 0.05 % 1 application Externally Twice a day for 15 days 07/05/2021 Not-Taking LORazepam 0.5 MG one tablet Orally Tw ice a day for 5 days 07/28/2024 Active Immunizations Vaccine Route Administration Date Status Comme nts Flu Vaccine Unknown 07/02/2013 Administered Work SARS-COV-2 Moderna Unknown 12/02/2020 Administered SARS-COV-2 Moderna Unknown 12/30/2020 Administered Fluarix Quadrivalent Unknown 08/14/2017 Refused Fluarix Quadrivalent Unknown 06/15/2020 Refused Fluarix Quadrivalent Unknown 06/28/2021 Refused Fluarix Quadrivalent Unknown 07/13/2022 Refused Fluarix Quadrivalent - 150 Unknown 07/28/2024 Refused Social History Tobacco Use: Social History Observation Description Date Details (start date - stop date) Former Smoker NA - NA Tobacco Use/Smoking Question Answer Notes Patient is a former smoker How long has it been since y ou last smoked? 5-10 years Additional Findings: Tobacco Non-User Fo rmer smoker, currently using no form of tobacco Alcohol Screen Question Answer Notes Did you have a drink contain ing alcohol in the past year? Yes How often did you have a dri nk containing alcohol in the past year? Monthly or less (1 point) How many drinks did you have on a typical day when you were drinking in the past year? 1 or 2 drinks (0 point) How often did you have 6 or more drinks on one occasion in the past year? 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 confirmed Problem 37576905 Lymphocytosis (D72.820) Active confirmed Problem 483916530 Labile hypertension (I10) Active confirmed Problem 268205995 BMI 36.0-36.9,adult (Z68.36) Active confirmed Problem [id number] Carpal tunnel syndrome on both sides (G56.03) Active confirmed Vital Signs Blood pressure diastolic 84 mm Hg 07/28/2024 robert ght is up 12 pounds since 07-17-23 Height 68 in 07/28/2024 weight is up 12 pounds since 07-17-23 Blood pressure systolic 142 mm Hg 07/28/2024 weig ht is up 12 pounds since 07-17-23 Weight 239 lbs 07/28/2024 weight is up 12 pounds since 07-17-23 BMI 36.34 kg/m2 07/28/2024 weight is up 12 pounds since 07-17-23 Encounters Encounter Location Date Provider Diagnosis Dominic Bello MD [address] [place] [phone] 07/21/2024 Dominic Bello Blood tests for routine general physical examination Z00.00 ; Labile hypertension I10 and Lymphocytosis D72.820 Dominic Bello MD [address] [place] [id number] 07/28/2024 Dominic Bello Labile hypertension I10 ; Annual physical exam Z00.00 ; Skin lesion L98.9 ; Fear of flying F40.243 ; Colon cancer screening Z12.11 and Depression screening Z13.31 Assessments Encounter Date Diagnosis (ICD Code) Assessment Notes Treatment Notes Treatment Clinical Notes Section Notes 07/21/2024 Blood tests for routine general physical examination (ICD-10 - Z00.00) 07/21/2024 Labile hypertension (ICD-10 - I10) 07/28/2024 Labile hypertension (ICD-10 - I10) doing well. if he loses weight should improve 07/28/2024 Annual physical exam (ICD-10 - Z00.00) Labs reviewed and discussed with patient 07/21/2024 Lymphocytosis (ICD-10 - D72.820) 07/28/2024 Skin lesion (ICD-10 - L98.9) advised to see dermatology/ ALL INFO GIVEN TO [facility] 07/28/2024 Fear of flying (ICD-10 - F40.243) 07/28/2024 Colon cancer screening (ICD-10 - Z12.11) 07/28/2024 Depression screening (ICD-10 - Z13.31) Plan Of Treatment Pending Test Test Name Order Date Electrocardiogram (EKG) 01/11/2017 Electrocardiogram (EKG) 03/21/2018 Complete Blood Count Auto Diff 4 Comprehensive [place]. Panel Fast 4 Lipid Panel 07/21/2024 PSA,Total (Free>4and<10) 07/21/2024 UA ClnCatch+Micro w/rflx Cult 07/21/2024 Next Appt Details Provider Name:Dominic Iyer ier, 07/24/2025 07:00:00 AM, [address] [place] [address], [address], [place], [place], [phone], Provider Name:Dominic Iyer ier, 07/30/2025 03:30:00 PM, [address] [place] [address], [address], [place], [place], [id number], Insurance Providers Payer Name Payer Address Payer Phone Subscriber Number Group Number Insured Name Patient Relationship to Insured Coverage Start Date Coverage End Date [facility] [address] [place], [place] [id number] MELY BERTRAND Self - patient is the insured Medical (General) History Medical History History ICD Code colonscopy 12/16/21 repeat 10 yrs
--- OUTSIDE RECORDS SUMMARY | 2024-11-18 21:54 | XMS_ITS | Patient Health Record ---
Author Organization [facility] Address [address] [place] [phone] Care Team Providers Care Russian Language Instructor Name Role Phone Ace HARRISON, Dominic Primary Care Provider Brock Barger Unavailable [phone] Allergies No Known Allergies Reason For Referral No Information Immunizations Vaccine Route Administration Date Status Comme nts Influenza Unknown 10/19/2021 Refused Social History Tobacco Use: Social History Observation Description Date Details (start date - stop date) Never Smoker NA - NA Tobacco Use/Smoking Question Answer Notes Patient is a nonsmoker Alcohol Screen Question Answer Notes Did you have a drink contain ing alcohol in the past year? Yes How often did you have a dri nk containing alcohol in the past year? 2 to 3 times a week (3 points) How many drinks did you have on a typical day when you were drinking in the past year? 3 or 4 drinks (1 point) How often did you have 6 or more drinks on one occasion in the past year? Monthly (2 points) Points 6 Interpretation Positive Section Notes: Nonsmoker; occ alcohol Problems Problem Type SNOMED Code ICD Code Onset Dates Problem Status W/U Status Risk Notes Problem [id number] Encounter for screening for malignant neoplasm of colon (Z12.11) Active confirmed Problem [id number] Preprocedural examination (Z01.818) Active confirmed Plan Of Treatment Future Test Test Name Order Date COLONOSCOPY 10/19/2021 Insurance Providers Payer Name Payer Address Payer Phone Subscriber Number Group Number Insured Name Patient Relationship to Insured Coverage Start Date Coverage End Date [facility] [address] [place] [address] [phone] [id number] MELY BERTRAND Self - patient is the insured Medical (General) History Medical History History ICD Code Denies [place],DM,CVA,Lung disease,renal dise ase Surgical History Surgery Date(Month/Year) Vasectomy 2009
--- OUTSIDE RECORDS SUMMARY | 2024-11-18 21:54 | XMS_ITS ---
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) Active confirmed Vital Signs Blood pressure systolic 142 mm Hg 07/28/20 24 Blood pressure diastolic 84 mm Hg 024 Height 68 in 07/28/2024 Weight 239 lbs 07/28/2024 BMI 36.34 kg/m2 07/28/2024 weight is up 12 pounds since 07-17-23 Encounters Encounter Location Date Provider Diagnosis Dominic Bello MD [address] [place] [address] [place] [phone] 07/28/2024 Dominic Bello Labile hypertension I10 ; Annual physical exam Z00.00 ; Skin lesion L98.9 ; Fear of flying F40.243 ; Colon cancer screening Z12.11 and Depression screening Z13.31 Assessments Encounter Date Diagnosis (ICD Code) Assessment Notes Treatment Notes Treatment Clinical Notes Section Notes 07/28/2024 Labile hypertension (ICD-10 - I10) doing well. if he loses weight should improve 07/28/2024 Annual physical exam (ICD-10 - Z00.00) Labs reviewed and discussed with patient 07/28/2024 Skin lesion (ICD-10 - L98.9) advised to see dermatology/ ALL INFO GIVEN TO [facility] 07/28/2024 Fear of flying (ICD-10 - F40.243) 07/28/2024 Colon cancer screening (ICD-10 - Z12.11) 07/28/2024 Depression screening (ICD-10 - Z13.31) Plan Of Treatment Medication Medication Name Sig Start Date Stop Date Notes LORazepam 0.5 MG one tablet Orally Twice a day for 5 days 07/28/2024 Treatment Notes Assessment Notes Labile hypertension doing well. if he lo ses weight should improve Annual physical exam Labs reviewed and d iscussed with patient Skin lesion advised to see derma tology/ ALL INFO GIVEN TO [facility] Next Appt Details Follow Up: 1 Year, Reason: Provider Name:Dominic Iyer ier, 07/24/2025 07:00:00 AM, [address], [address], [place], [place], [phone], Provider Name:Dominic Iyer ier, 07/30/2025 03:30:00 PM, [address], [address], [place], [phone], Progress Notes * MARCUSMELY HEWITT JrDOB:[birth year] (49 yo M)Acc No.[id number]:07/28/2024 Progress Notes Patient:?MELY VELAZQUEZ Provider:?Dominic Bello MD :1975???Age:49 Y???Sex:Male Stef e:07/28/2024 Address:[address] [place], [place] [phone] Subjective: * Chief Complaints: * ???ANNUAL EXAM * HPI: ???Depression Screening:?PHQ-9?Little interest or pleasure in doing things?Not at all,?Feeling down, depressed, or hopeless?Not at all,?Trouble falling or staying asleep, or sleeping too much?Not at all,?Feeling tired or having little energy?Not at all,?Poor appetite or overeating?Not at all,?Feeling bad about yourself or that you are a failure, or have let yourself or your family down?Not at all,?Trouble concentrating on things, such as reading the newspaper or watching television?Not at all,?Moving or speaking so slowly that other people could have noticed; or the opposite, being so fidgety or restless that you have been moving around a lot more than usual?Not at all,?Thoughts that you would be better off or of hurting yourself in some way?Not at all,?Total Score?0.?Interpretation and Intervention?Depression Screening Findings?Negative,?Follow-Up for Depression?: review of PHQ-9 found negative result, no follow-up needed.?Communication Needs:?Communication Needs?Does the patient have a hearing impairment?No,?Does the patient have a vision impairment??No,?Does the patient have a cognition impairment??No.?SDOH Questions:?SDOH Questions?In the past year have you been worried about losing housing??No,?In the past year have you or any family members you live with been unable to get any of the following when it was really needed? Check all that apply:?None.?Symptom(s):? patient is a 49 yo male here for annual visit with review of recent labs and follow up of chronic issues, eyes water all the time. is very annoying. * ROS:?General/Constitutional:?Patient denies?fatigue , headache.?Change in appetite?denies.?Chills?denies.?Fever?denies.?Ophthalmologic:?Blurred vision?denies.?Discharge?denies.?Pain?denies.?ENT:?Patient denies?decreased sense of smell , any loss of taste , sore throat.?Decreased hearing?denies.?Sore throat?denies.?Swollen glands?denies.?Endocrine:?Cold intolerance?denies.?Excessive thirst?denies.?Heat intolerance?denies.?Weight loss?denies.?Respiratory:?Cough?denies.?Shortness of breath at rest?denies.?Shortness of breath with exertion?denies.?Wheezing?denies.?Cardiovascular:?Chest pain at rest?denies.?Chest pain with exertion?denies.?Irregular heartbeat?denies.?Shortness of breath?denies.?Gastrointestinal:?Abdominal pain?denies.?Change in bowel habits?denies.?Diarrhea?denies.?Nausea?denies.?Rectal bleeding?denies.?Vomiting?denies .?Genitourinary:?Blood in urine?denies.?Difficulty urinating?denies.?Frequent urination?denies.?Musculoskeletal:?Patient denies?muscle aches.?Painful joints?denies.?Weakness?denies.?Peripheral Vascular:?Patient denies?red and blue toes.?Skin:?Dry skin?denies.?Itching?denies.?Denies?Mole(s),? changes in moles, new moles or any lesions of concern.?Denies?Photosensitivity.?Rash?denies.?Neurologic:?Dizziness?denies.?Fainting?denies.?Headache?denies.? * Medical History:? * Surgical History:? * Hospitalization/Major Diagno stic Procedure:? * Family History:?Father: mando e 79 yrs, non hodgkins lymphoma.?Mother: alive 66 yrs, cva.?1 brother(s) . 2 daughter(s) . .? Father healthy Mother healthy, Denies mental health/substance abuse family history, No pertinent family medical history. * Social History:?Tobacco Use:?Tobacco Use/Smoking?Patient is a?former smoker,?How long has it been since you last smoked??5-10 years,?Additional Findings: Tobacco Non-User?Former smoker, currently using no form of tobacco.?Drugs/Alcohol:?Alcohol Screen?Did you have a drink containing alcohol in the past year??Yes,?How often did you have a drink containing alcohol in the past year??Monthly or less (1 point),?How many drinks did you have on a typical day when you were drinking in the past year??1 or 2 drinks (0 point),?How often did you have 6 or more drinks on one occasion in the past year??Never (0 point),?Points?1,?Interpretation?Negative.?Miscellaneous:?Caffeine: yes, frequency:, 2-3 cups per day. Children: yes. no Community involvements. Exercise: yes, 2-3 times per week plays hockey. Housing: owning. Living with: spouse. Marital status: . Occupation: works full- time. Pets: dog. no Travel outside of the [place]. * Medications:?TakingNizoral 2 % Shampoo as directed Externally dailyLORazepam 0.5 MG Tablet one tablet Orally Once a dayTaking Nizoral 2 % Shampoo as directed Externally dailyTaking LORazepam 0.5 MG Tablet one tablet Orally Once a dayNot-Taking/PRNLORazepam 0.5 MG Tablet 1 tab Orally Twice a day as neededFluorouracil 1 % Cream 1 application Externally Twice a dayClobetasol Propionate 0.05 % Cream 1 application Externally Twice a dayMedication List reviewed and reconciled with the patientNot-Taking/PRN LORazepam 0.5 MG Tablet 1 tab Orally Twice a day as neededNot-Taking/PRN Fluorouracil 1 % Cream 1 application Externally Twice a dayNot-Taking/PRN Clobetasol Propionate 0.05 % Cream 1 application Externally Twice a dayMedication List reviewed and reconciled with the patient * Allergies:?N.K.D.A.yes[Aller gies Verified] Objective: * Vitals:?Ht: 68, Wt:239, BMI: 36.34, BP:142/84, Repeat BP:130/88 weight is up 12 pounds since 07-17-23. * ???Past Orders: ???Lab:UA CC w/rflx Micro + Cult (Order Date - 07/21/2024) (Collection Date - 07/21/2024) ? Value Reference Range ?Color Urine Yellow - ?Appearance Urine Clear - ?PH 6.5 5.0-9.0 - ?Glucose Urine UA Negative Neg ative - mg/dL ?Urine Blood Negative Negative - ?Specific [place] - Urine 1.015 1.005-1.025 - ?Urine Protein Negative Neg-Tr [place] - mg/dL ?Urine Ketones Negative Negati ve - mg/dL ?Nitrite Urine Negative Negati ve - ?Leukocyte Esterase Urine Negative Negative - ???Lab:PSA,Total (Free>4and< 10) (Order Date - 07/21/2024) (Collection Date - 07/21/2024) ? Value Reference Range ?PSA,Total (Free>4and<10) 0.21 0.00-4.00 - ng/mL ???Lab:Lipid Panel (Order Da te - 07/21/2024) (Collection Date - 07/21/2024) ? Value Reference Range ?Triglycerides 133 <150 - mg/dL ?Cholesterol 219 H <200 - m g/dL ?LDL Cholesterol Calculated 148 H <100 - mg/dL ?HDL Cholesterol 45 >40 - mg/dL ???Lab:Comprehensive [place]. [place] Fast (Order Date - 07/21/2024) (Collection Date - 07/21/2024) ? Value Reference Range ?Sodium 137 135-145 - mmo l/L ?Bilirubin Total 0.6 0.0- 1.0 - mg/dL ?Aspartate Amino Transferase 32 5-37 - U/L ?Alanine Aminotransferase 29 0-40 - U/L ?Total Protein 7.2 6.5-8. 0 - g/dL ?Albumin Level 4.1 3.5-5. 0 - g/dL ?Alkaline Phosphatase 65 39-117 - U/L ?Potassium 4.2 3.3-5.1 - mmol/L ?Chloride 104 96-108 - mm ol/L ?Carbon Dioxide 27 22-29 - mmol/L ?Anion Gap 10 L 12-20 - ?Blood Urea Nitrogen 11 9-16 - mg/dL ?Creatinine 0.86 0.5-1.4 - mg/dL ?Estimated Glomerular Filt Rate > 60 - ?Glucose Fasting 91 60-9 9 - mg/dL ?Calcium 9.3 8.4-10.2 - m g/dL ???Lab:Complete Blood Count Auto Diff (Order Date - 07/21/2024) (Collection Date - 07/21/2024) ? Value Reference Range ?White Blood Count 6.9 4. 8-10.8 - X10*3/uL ?Red Blood Count 5.01 4.60 -5.80 - X10*6/uL ?Hemoglobin 16.0 14.0-18.0 - g/dl ?Hematocrit 46.1 42.0-52.0 - % ?Mean Corpuscular Volume 92.0 80.0-98.0 - fL ?Mean Corpuscular Hemoglobin 31.9 27.0-33.0 - pg ?Mean Corpuscular HGB Conc 34.7 31.0-36.0 - g/dl ?Red Cell Distribution Width 12.2 11.0-16.0 - % ?Platelet Count 228 160-4 00 - X10*3/uL ?Mean Platelet Volume 10.0 9.4-12.4 - fL ?Neutrophils Percent Auto 51.6 45-73 - % ?Imm Gran Pct Auto 0.3 0. 0-0.4 - % ?Lymphocytes Percent Auto 34.8 20-40 - % ?Monocytes Percent Auto 9.5 2-11 - % ?Eosinophils Percent Auto 3.1 0-4 - % ?Basophils Percent Auto 0.7 0-2 - % ?NRBC Pct Auto 0.0 0.0-0. 2 - /100WBC ?Neutrophils Absolute Auto 3.5 2.0-8.3 - x10*3/uL ?Imm Gran Abs Auto 0.02 0. 00-0.03 - X10*3/uL ?Lymphocytes Absolute Auto 2.4 1.2-4.9 - X10*3/uL ?Monocytes Absolute Auto 0.7 0.1-1.2 - X10*3/uL ?Eosinophils Absolute Auto 0.2 0.0-0.4 - X10*3/uL ?Basophils Absolute Auto 0.1 0.0-0.2 - X10*3/uL ?NRBC Abs Auto 0.000 0.0-0. 012 - X10*3/uL * Examination: ???General Examination: ?GENERAL APPEARANCE:?well developed, well nourished, in no acute distress.?HEAD:?normocephalic, atraumatic.?EYES:?pupils equal, round, reactive to light and accommodation, sclera non-icteric.?EARS:?normal.?ORAL CAVITY:?mucosa moist.?THROAT:?clear.?NECK/THYROID:?neck supple, full range of motion, no cervical lymphadenopathy, no bruits.?SKIN:?warm and dry, no suspicious lesions , abnormal with a scaly lesion side of nose about one half inch in diameter.?HEART:?regular rate and rhythm, S1, S2 normal, no murmurs.?LUNGS:?clear to auscultation bilaterally.?ABDOMEN:?soft, nontender, nondistended, bowel sounds present, normal, no organomegaly , no masses palpable.?RECTAL EXAM:?normal tone, no external hemorrhoids, no masses palpable, prostate normal, stool guaiac negative.?MALE GENITOURINARY:?circumcised , no penile lesions or discharge , testes descended bilaterally , no testicular mass.?EXTREMITIES:?no clubbing, cyanosis, or edema.?NEUROLOGIC:?nonfocal, motor strength normal upper and lower extremities, sensory exam intact.? Assessment: * Assessment: 1.?Annual physical exam - Z0 0.00 (Primary)?2.?Labile hypertension - I10?3.?Skin lesion - L98.9?4.?Fear of flying - F40.243?5.?Colon cancer screening - Z12.11?6.?Depression screening - Z13.31? Plan: * Treatment: 2.?Labile hypertension? Continue LORazepam Tablet, 0.5 MG, one tablet, Orally, Twice a day, 5 days, 10, Refills 1.?? Notes: doing well. if he loses weight should improve?? 3.?Skin lesion? Notes: advised to see dermatology/ ALL INFO GIVEN TO [facility]?? * Immunizations:? Fluarix Quadrivalent - 150 (Not administered - Refused: Patient decision) * Procedure Codes:? * Preventive Medicine:? ??Counseling:?Care goal follow-up plan:?Counseling for abnormal BMI provided?Yes,?Above Normal BMI Follow-up?Giving encouragement to exercise.? ??Immunizations:?Influenza?Have you had a flu shot since the most recent April 13??No patient refused at visit today.? * Follow Up:?1 Year * * Sign off status: Completed true * Provider:?Dominic Bello MD Date:?1 09/28/2023 Generated for Brianne lee/Isidro/Karolina on:?11/18/2024 09:53 PM EDT History and Physical Notes * HPI (History of Present Illness) Category Sub-Category Detail Notes Category Not es Symptom(s) patient is a 49 yo male here for annual visit with review of recent labs and follow up of chronic issues, eyes water all the time. is very annoying. Depression Screening PHQ-9 Little inte rest or pleasure in doing things: Not at all Feeling down, depressed, or hopeless: No t at all Trouble falling or staying asleep, or sl eeping too much: Not at all Feeling tired or having little energy: N ot at all Poor appetite or overeating: Not at all Feeling bad about yourself o r that you are a failure, or have let yourself or your family down: Not at all Trouble concentrating on thi ngs, such as reading the newspaper or watching television: Not at all Moving or speaking so slowly that other people could have noticed; or the opposite, being so fidgety or restless that you have been moving around a lot more than usual: Not at all Thoughts that you would be b huong off or of hurting yourself in some way: Not at all Total Score: 0 Interpretation and Intervention Depression Gualberto encinas Findings: Negative Follow-Up for Depression: : review of PH Q-9 found negative result, no follow-up needed SDOH Questions SDOH Questions In the past year have you been worried about losing housing?: No In the past year have you or any family members you live with been unable to get any of the following when it was really needed? Check all that apply:: None Communication Needs Communication Needs Does the patient have a hearing impairment: No Does the patient have a vision impairmen t?: No Does the patient have a cognition impair ment?: No Examination Category Sub-Category Detail Notes Category Not es General Examination GENERAL APPEARANCE: well dev eloped, well nourished, in no acute distress HEAD: normocephalic, atrau matic EYES: pupils equal, round, reactive to light and accommodation, sclera non-icteric EARS: normal THROAT: clear NECK/THYROID: neck supple, full ra nge of motion, no cervical lymphadenopathy, no bruits HEART: regular rate and rhy thm, S1, S2 normal, no murmurs LUNGS: clear to auscultatio n bilaterally ABDOMEN: soft, nontender, non distended, bowel sounds present, normal, no organomegaly , no masses palpable NEUROLOGIC: nonfocal, motor stre ngth normal upper and lower extremities, sensory exam intact SKIN: warm and dry, no shivam picious lesions , abnormal with a scaly lesion side of nose about one half inch in diameter EXTREMITIES: no clubbing, cyanosi s, or edema MALE GENITOURINARY: circumcised , no pen ile lesions or discharge , testes descended bilaterally , no testicular mass RECTAL EXAM: normal tone, no exte rnal hemorrhoids, no masses palpable, prostate normal, stool guaiac negative ORAL CAVITY: mucosa moist
--- OUTSIDE RECORDS SUMMARY | 2024-11-18 21:54 | XMS_ITS ---
Author Organization Dominic Bello MD Address [address] [place] [phone] Care Team Providers Care Screw Machine Setter Name Role Phone Dominic Bello Primary Care Provider REASON FOR VISIT FASTING LABS Encounters Encounter Location Date Provider Diagnosis Dominic Bello MD [address] [place] [phone] 07/21/2024 Dominic Bello Blood tests for routine general physical examination Z00.00 ; Labile hypertension I10 and Lymphocytosis D72.820 Assessments Encounter Date Diagnosis (ICD Code) Assessment Notes Treatment Notes Treatment Clinical Notes Section Notes 07/21/2024 Blood tests for routine general physical examination (ICD-10 - Z00.00) 07/21/2024 Labile hypertension (ICD-10 - I10) 07/21/2024 Lymphocytosis (ICD-10 - D72.820) Plan Of Treatment Pending Test Test Name Order Date Complete Blood Count Auto Diff 4 Comprehensive [place]. Panel Fast 4 Lipid Panel 07/21/2024 PSA,Total (Free>4and<10) 07/21/2024 UA ClnCatch+Micro w/rflx Cult 07/21/2024 Next Appt Details Provider Name:Dominic Iyer ier, 07/24/2025 07:00:00 AM, [address] [place] [address], Suite [facility], [place], [place], [phone], Provider Name:Dominic Iyer ier, 07/30/2025 03:30:00 PM, [address], [address], [place], [phone], Progress Notes * MELY VELAZQUEZ JrDOB:[birth year] (49 yo M)Acc No.[id number]:07/21/2024 Progress Note Patient:?MELY VELAZQUEZ Provider:?Dominic Bello MD :1975???Age:49 Y???Sex:Male Stef e:07/21/2024 Address:[address] [place] [address] jamie [id number] Subjective: * Chief Complaints: * ???1. FASTING LABS. * Medical History:? Objective: * Vitals:? Assessment: * Assessment: 1.?Blood tests for routine g eneral physical examination - Z00.00 (Primary)???2.?Labile hypertension - I10???3.?Lymphocytosis - D72.820??? Plan: * Treatment: 2.?Labile hypertension?LAB: Complete Blood Count Auto Diff ?LAB: Comprehensive [place]. Panel Fast ?LAB: Lipid Panel ?LAB: PSA,Total (Free>4and<10) ?LAB: UA ClnCatch+Micro w/rflx Cult 3.?Lymphocytosis?LAB: Complete Blood Count Auto Diff ?LAB: Comprehensive [place]. Panel Fast ?LAB: Lipid Panel ?LAB: PSA,Total (Free>4and<10) ?LAB: UA ClnCatch+Micro w/rflx Cult * Procedure Codes:?02766 VENIP UNCT, ROUTINE* * * The named appointment provid er may or may not be the originator of this progress note, and it is not deemed complete until electronically signed by the appointment provider. Sign off status: Pending * Provider:?Dominic Bello MD Date:?1 09/21/2023 Generated for Brianne lee/Isidro/Karolina on:?11/18/2024 09:54 PM EDT
[2024-11-18 23:11] VITALS: BP 140/89; PULSE 77; RESP 20; TEMP 36.7; O2SAT 95
--- NOTE | 2024-11-18 23:36 | ED.GENADULT ---
HPI - General Adult General Chief complaint: Abdominal Pain Stated complaint: Abdominal pain Time Seen by Provider: 11/18/24 23:35 History of Present Illness ED Provider: Jael NEELY narrative: The patient is a 49-year-old male who has a surgical history of an umbilical hernia repair but who was otherwise in generally good health and is on no regular medications. The patient says that at around 4 PM this afternoon he started to feel discomfort around his umbilicus that has been fairly persistent since then. He has had some nausea but no vomiting. He had had a normal bowel movement earlier in the day but no bowel movements since the onset of his discomfort. No definite fever, sweats, chills. He has a decreased appetite. Related Data Previous Rx's ?Medication ?Instructions ?Recorded amoxicillin 875 mg-potassium 1 tab PO BID #14 tabs 11/19/24 clavulanate 125 mg tablet ondansetron 4 mg disintegrating 4 mg PO Q6H PRN nausea and 11/19/24 tablet vomiting #10 tabs Allergies Allergy/AdvReac Type Severity Reaction Status Date / Time No Known Allergies Allergy Verified 11/18/24 20:53 Review of Systems Review of Systems: Yes all other systems are reviewed and are negative [facility] Past Medical History Medical History (Updated 11/19/24 @ 02:41 by Rogelio Elder MD) No pertinent past medical history Surgical History History of umbilical hernia repair Hx of vasectomy Social History Social History Patient Tobacco Use Status: Never used Tobacco Smoked in Last 30 Days: No Second Hand Smoke Exposure: No Use of substances other than those prescribed or required for medical reasons: No Advance Directives: No Advance Directives Information Provided: Yes Do you have a plan to hurt others: No Plan Physical Exam ED Vital Signs: Vital Signs - 24 hr 11/18/24 20:52 11/18/24 23:11 11/19/24 01:22 Temperature 98.5 F 98.1 F 97.8 F Pulse Rate 70 77 73 Respiratory Rate 16 20 16 Blood Pressure 158/105 H 140/89 H 119/79 Pulse Oximetry 98 95 Oxygen Delivery Method Room Air 11/19/24 01:27 Temperature 97.8 F Pulse Rate 73 Respiratory Rate 16 Blood Pressure 119/79 Pulse Oximetry 95 Oxygen Delivery Method Room Air BMI result Body Mass Index 36.3 Const Other: The patient is a kapoor 49-year-old male who was awake and alert. He looks mildly uncomfortable but not acutely ill. Orientation/consciousness: patient oriented x3 HENMT Other: Face is symmetrical. Mucous membranes moist. Eyes General: appearance normal, both eyes and all related structures Neck Neck: Yes normal visual inspection, Yes full ROM and Yes no lymphadenopathy Resp Effort & Inspection: normal respiratory effort Auscultation: clear to auscultation bilaterally Cardio Rate: regular rate Rhythm: regular rhythm Heart sounds: S1 normal heart sound present and S2 normal heart sound present GI Other: The patient is tender in both lower quadrants. General: Yes no CVA tenderness Back/Spine/Pelvis Back: no CVA tenderness Skin General skin exam: no rashes or lesions noted Neuro General: patient oriented x3, tone normal, moves all extremities, no focal motor deficits and CN's II-XI intact bilaterally Extrem Other: No peripheral edema General: Yes no pedal edema and Yes no calf tenderness Medications Administered Discontinued Medications Generic Name Dose Route Start Last Admin Trade Name Freq PRN Reason Stop Dose Admin Sodium Chloride 1,000 mls @ 999 mls/hr 11/18/24 23:45 11/19/24 01:30 Ns IV 11/19/24 00:45 Infused .Q1H1M VALERIE Infusion Ampicillin Sodium/Sulbactam 100 mls @ 200 mls/hr 11/19/24 02:05 11/19/24 02:26 Sodium 3 gm/ Sodium Chloride IV 11/19/24 02:34 200 mls/hr ONCE ONE Administration Iohexol 85 ml 11/18/24 23:55 11/18/24 23:55 Iohexol 350 Mg/Ml 100 Ml Infus..Btl IV 11/18/24 23:56 85 ml ONCE ONE Administration Ketorolac Tromethamine 10 mg 11/18/24 23:43 11/19/24 00:09 Ketorolac Tromethamine 15 Mg/Ml Vial IVPUSH 11/18/24 23:44 10 mg ONCE ONE Administration Ondansetron HCl 4 mg 11/18/24 23:43 11/19/24 00:09 Ondansetron Hcl 4 Mg/2 Ml Vial IVPUSH 11/18/24 23:44 4 mg ONCE ONE Administration Medical Decision Making Medical Decision Making [facility] Narrative: The patient presents with several hours of periumbilical abdominal pain and nausea but no vomiting. He has a surgical history of a laparoscopic umbilical hernia repair. His physical exam showed tenderness in both lower quadrants without rebound or guarding[place] [id number]. My initial impression was that he might have appendicitis and so I ordered a CT scan of the abdomen and pelvis. CT scan shows findings of an area of enteritis which is causing some distention of small-bowel giving the appearance of a small bowel obstructions or ileus. I spoke to the radiologist. He felt the appearance of the small bowel on CAT scan was not suggestive of a typical small-bowel obstruction caused by adhesions. He felt the appearance of the distended small bowel was related to a segment of small bowel that seemed inflamed. I discussed the CT findings with the on-call general surgeon, Dr. Villarreal. My overall impression is that this is probably more of an ileus picture than a true small-bowel obstruction. The patient felt considerably better after a dose of ketorolac and ondansetron. The patient was tolerating juan diego maranda. I think the patient has probably well enough for a trial of management at home. The patient will be placed on a course of Augmentin. The patient received a dose of Unasyn IV in the emergency department prior to discharge. The patient's discharge medications will be Augmentin and ondansetron. The patient is encouraged to take clear fluids and, if tolerating clear fluids, simple foods like toast or rice. The patient should contact the General surgery office for a follow up or return to the ER if significantly worse. Lab Data 11/18/24 21:07 11/18/24 21:07 Labs: Lab Results 11/18/24 11/18/24 Range/Units 21:07 21:30 WBC 13.7 H (4.8-10.8) X10*3/uL RBC 5.20 (4.60-5.80) X10*6/uL Hgb 16.6 (14.0-18.0) g/dl Hct 46.3 (42.0-52.0) % MCV 89.0 (80.0-98.0) fL MCH 31.9 (27.0-33.0) pg MCHC 35.9 (31.0-36.0) g/dl RDW 12.5 (11.0-16.0) % Plt Count 241 (160-400) X10*3/uL MPV 9.0 L (9.4-12.4) fL Immature Gran % (Auto) 0.4 (0.0-0.4) % Neut % (Auto) 67.7 (45-73) % Lymph % (Auto) 22.9 (20-40) % [place] % (Auto) 7.0 (2-11) % Eos % (Auto) 1.3 (0-4) % Baso % (Auto) 0.7 (0-2) % Lymph # (Auto) 3.1 (1.2-4.9) X10*3/uL [place] # (Auto) 1.0 (0.1-1.2) X10*3/uL Eos # (Auto) 0.2 (0.0-0.4) X10*3/uL Baso # (Auto) 0.1 (0.0-0.2) X10*3/uL Abs Immat Gran (auto) 0.06 H (0.00-0.03) X10*3/uL Absolute Neuts (auto) 9.2 H (2.0-8.3) x10*3/uL Absolute Nucleated RBC 0.000 (0.0-0.012) X10*3/uL Nucleated RBC % (auto) 0.0 (0.0-0.2) /100WBC Sodium 140 (135-145) mmol/L Potassium 4.6 (3.3-5.1) mmol/L Chloride 105 (96-108) mmol/L Carbon Dioxide 28 (22-29) mmol/L Anion Gap 12 (12-20) BUN 16 (9-16) mg/dL Creatinine 0.95 (0.5-1.4) mg/dL Estim Creat Clear Calc 113.5 Estimated GFR > 60 Random Glucose 100 (60-115) mg/dL Calcium 10.0 D (8.4-10.2) mg/dL Total Bilirubin 0.5 (0.0-1.0) mg/dL AST 29 (5-37) U/L ALT 33 (0-40) U/L Alkaline Phosphatase 72 (39-117) U/L Total Protein 7.6 (6.5-8.0) g/dL Albumin 4.4 (3.5-5.0) g/dL Lipase 31 (8-78) U/L Urine Color Yellow Urine Appearance Clear Urine pH 6.5 (5.0-9.0) Ur Specific [place] 1.020 (1.005-1.025) Urine Protein Negative (Neg-Trace) mg/dL Urine Glucose (UA) Negative (Negative) mg/dL Urine Ketones Negative (Negative) mg/dL Urine Blood Negative (Negative) Urine Nitrite Negative (Negative) Ur Leukocyte Esterase Negative (Negative) Urine RBC 0-2 (0-2) /HPF Urine WBC 0-5 (0-5) /HPF Ur Squamous Epith Cells 0-2 (0-2) /HPF Urine Bacteria None Seen (None Seen) Hyaline Casts 0-2 (0-2) /LPF Discharge Plan Discharge Clinical Impression: Enteritis, Ileus Patient Disposition: Home, Self-Care Instructions: Ileus (ED) Additional Instructions: You have an area of inflamed small bowel which seems to be causing your symptoms. I expect this condition to improve without surgery. It is not certain whether antibiotics will be helpful but we are putting you on a course of antibiotics in case they are helpful. Please take the prescribed antibiotics 2 times a day, take your first dose when you pick it up from the pharmacy this morning. I have also sent a prescription for nausea tablets to your pharmacy which you may use as needed. Please do your best to keep yourself hydrated at home with clear fluids. Clear fluids or any fluids you can see through like water or juan diego maranda. If you feel that you are tolerating clear fluids well you can try simple foods like toast or over cooked rice. You have the contact information for the General surgery office. Please call for a follow up appointment unless you are feeling a lot better. If you are uncertain of what to do you can always contact your primary care doctor for additional advice as needed. If at any point you are significantly worse please return to the emergency room. Prescriptions: New amoxicillin-pot clavulanate 875-125 mg tablet 1 tab PO BID Qty: 14 0RF ondansetron 4 mg tablet,disintegrating 4 mg PO Q6H PRN (Reason: nausea and vomiting) Qty: 10 0RF Referrals: [facility] [place] General Surgeons [Provider Group] (CT findings of small-bowel obstruction which is probably an ileus secondary to an area of enteritis) Dominic Bello MD [Primary Care Provider] - Print Language: [place]ian
[2024-11-18] MEDS: iohexoL 350 MG/ML 100 ML INFUS..BTL 85 ML IV (23:55)
[2024-11-19] MEDS: 0.9 % Sodium Chloride 1,000 ML 999 ML IV (00:09)
[2024-11-19] MEDS: Ketorolac Tromethamine 15 MG/ML VIAL 10 MG IVPUSH (00:09)
[2024-11-19] MEDS: ondansetron HCL 4 MG/2 ML VIAL IVPUSH (00:09)
[2024-11-19 01:22] VITALS: BP 119/79; PULSE 73; RESP 16; TEMP 36.6
[2024-11-19 01:27] VITALS: BP 119/79; PULSE 73; RESP 16; TEMP 36.6; O2SAT 95
[2024-11-19] MEDS: Ampicillin Sodium/Sulbactam Na 3 GM in 0.9 % Sodium Chloride 100 ML IV (02:26)
[2024-11-19 03:07] VITALS: BP 119/79; PULSE 73; RESP 16; TEMP 36.6; O2SAT 95
== END 2024-11-19 03:08 | disposition home or self-care (01) ==
PROVIDERS: Emergency Provider Emergency Medicine; PCP Internal Medicine
DX: K52.89 Other specified noninfective gastroenteritis and colitis (principal); K56.7 Ileus, unspecified; R10.33 Periumbilical pain; E66.9 Obesity, unspecified; Z68.36 Body mass index [BMI] 36.0-36.9, adult
CPT/HCPCS: 36415; 74177; 80053; 81001; 83690; 85025; 96361; 96365; 96375; 99284; 99285; J0295; J1885; J2405; Q9967

== ENCOUNTER → 2024-11-18 23:43 | Outpatient (BNV) | payer OTHER, SELFPAY | PROVIDERS: Emergency Provider Emergency Medicine; PCP Internal Medicine; Visit Provider Radiology Diagnostic Radiology | DX: K56.609 Unspecified intestinal obstruction, unspecified as to partial versus complete obstruction (principal) | CPT/HCPCS: 74177 ==

== ENCOUNTER 2025-07-24 09:57 | Outpatient (REF) | payer OTHER, SELFPAY ==
[2025-07-24 10:01] LABS: MANUAL DIFF FLAG NO
[2025-07-24 11:17] LABS: Hematocrit 47.8 % (42.0-52.0); Hemoglobin 16.0 g/dl (14.0-18.0); Imm Gran Abs Auto 0.05 X10*3/uL (0.00-0.03); Imm Gran Pct Auto 0.6 % (0.0-0.4); Lymphocytes Absolute Auto 2.8 X10*3/uL (1.2-4.9); Mean Corpuscular HGB Conc 33.5 g/dl (31.0-36.0); Mean Corpuscular Hemoglobin 31.5 pg (27.0-33.0); Mean Corpuscular Volume 94.1 fL (80.0-98.0); NRBC Abs Auto 0.000 X10*3/uL (0.0-0.012); NRBC Pct Auto 0.0 /100WBC (0.0-0.2); Platelet Count 255 X10*3/uL (160-400); Red Blood Count 5.08 X10*6/uL (4.60-5.80); White Blood Count 7.8 X10*3/uL (4.8-10.8)
[2025-07-24 11:18] LABS: Appearance Urine Cloudy; Glucose Urine UA Negative (Negative); PH 7.5 (5.0-9.0); Specific Gravity - Urine 1.020 (1.005-1.025)
[2025-07-24 11:26] LABS: Alanine Aminotransferase 35 U/L (0-40); Albumin Level 4.3 g/dL (3.5-5.0); Alkaline Phosphatase 71 U/L (39-117); Anion Gap 13 (12-20); Aspartate Amino Transferase 32 U/L (5-37); Blood Urea Nitrogen 12 mg/dL (9-16); Calcium 9.3 mg/dL (8.4-10.2); Carbon Dioxide 29 mmol/L (22-29); Chloride 103 mmol/L (96-108); Cholesterol 248 mg/dL (<200); Estimated Glomerular Filt Rate > 60; HDL Cholesterol 48 mg/dL (>40); Potassium 4.6 mmol/L (3.3-5.1); Sodium 140 mmol/L (135-145); Total Protein 7.2 g/dL (6.5-8.0); Triglycerides 225 mg/dL (<150)
[2025-07-24 12:02] LABS: PSA,Total (Free>4and<10) 0.39 ng/mL (0.00-4.00)
== END 2025-07-24 09:58 | disposition home or self-care (01) ==
LOC: HO.LNP 09:57
PROVIDERS: Visit Provider Internal Medicine
DX: Z00.00 Encounter for general adult medical examination without abnormal findings (principal); I10 Essential (primary) hypertension; D72.820 Lymphocytosis (symptomatic); Z12.5 Encounter for screening for malignant neoplasm of prostate
CPT/HCPCS: 80053; 80061; 81001; 84153; 85025